=== PATIENT | female | born 1950 | race Caucasian/White ===

== ENCOUNTER → 2022-04-17 | Outpatient (CLI) | payer MEDICARE, OTHER ==
--- NOTE | 2022-04-17 12:55 | Diagnostic Imaging Report ---
EXAMINATION: Right shoulder MRI without contrast, 04/17/2022. TECHNIQUE: Multiplanar, multisequence [id number] MRI of the right upper extremity was accomplished. INDICATION: Status post fall in January. Shoulder pain. FINDINGS: There is a full-thickness retracted tear of the infraspinatus tendon with retraction measuring 2.6 cm. A separate anterior tear within the anterior supraspinatus tendon, also full-thickness in nature, with a focal gap measuring 1 cm with some residual fibers at the greater tuberosity intact. There is secondary fluid throughout the subdeltoid-subacromial bursa with a glenohumeral joint effusion also noted. There is marked heterogeneous T2 hyperintensity throughout the subscapularis tendon with a full-thickness tear noted without significant retraction. The degree of retraction is less than a centimeter. The tear predominantly involves the more cranial fibers with some of the caudal fibers still intact. The long head of the biceps tendon is medially dislocated and lies anterior to the subscapularis tendon. The biceps tendon itself contains a longitudinal split tear. The intracapsular aspect of the tendon is poorly visualized with a proximal tear difficult to exclude. The labrum is poorly characterized without contrast. No discrete tear appreciated. There is diffuse atrophy and fatty infiltration, most marked throughout the cranial fibers of the subscapularis muscle but also involving portions of the infraspinatus and supraspinatus muscles. The axilla appears unremarkable. There is narrowing and spurring as well as edema at the acromioclavicular joint. IMPRESSION: 1. Full-thickness tears of the supraspinatus and infraspinatus tendons with retraction as above. 2. Full-thickness tear of the cranial aspect of the subscapularis tendon. 3. Medial dislocation of the long head of the biceps tendon which contains a longitudinal split tear. Its intracapsular component is not well seen. 4. Joint effusion with fluid extending into the subdeltoid-subacromial bursa as well as overlying acromioclavicular osteoarthritic changes. Dictated by: Dictated on workstation # [id number]
== END ==
LOC: RAD 10:15
PROVIDERS: ATTEND Nurse Practitioner Family
DX: M75.121 Complete rotator cuff tear or rupture of right shoulder, not specified as traumatic (principal); S43.004A Unspecified dislocation of right shoulder joint, initial encounter; M19.011 Primary osteoarthritis, right shoulder; W19.XXXA Unspecified fall, initial encounter
CPT/HCPCS: 73221